=== PATIENT | male | born 1950 | race Caucasian/White ===

== ENCOUNTER 2017-01-14 08:55 | Day surgery (SDC) | payer BC ==
[2017-01-14] MEDS ORDERED: Lactated Ringers 1,000 ML IV SCH (09:00)
[2017-01-14] MEDS ORDERED: Sodium Chloride 0.9% 10 ML Syringe FLUSH PRN (09:00)
[2017-01-14] MEDS ORDERED: Propofol 200 MG/20 ML SDV ONE ×2 (10:59→11:51)
[2017-01-14] MEDS ORDERED: fentaNYL 100 MCG/2 ML SDV ONE ×2 (10:59→11:51)
[2017-01-14] MEDS ORDERED: Midazolam 1 MG/ML 2 ML SDV ONE ×2 (10:59→11:51)
--- NOTE | 2017-01-14 11:15 | PCM.PN ---
- General Info Date of Service: 01/14/17 - Review of Systems Systems Review Comment:: 66 y/o male with history of colon polyps here for follow up colonoscopy. His last colonoscopy was 3 years ago. He has not noticed any recent change in his bowel pattern. He is medically stable to proceed today. He agrees to proceed accepting risks. - Patient Data Vitals - most recent: Last Vital Signs Temp 97.9 F 01/14/17 09:15 Pulse 66 01/14/17 09:15 Resp 20 01/14/17 09:15 BP 124/82 01/14/17 09:15 Pulse Ox 100 01/14/17 09:15 Weight - most recent: 83.733 kg Med Orders - Current: Current Medications Lactated Ringer's (Ringers, Lactated) 1,000 mls @ 70 mls/hr IV ASDIRECTED KIRK Last Admin: 01/14/17 09:52 Dose: 70 mls/hr Sodium Chloride (Saline Flush) 10 ml FLUSH ASDIRECTED PRN PRN Reason: Keep Vein Open Discontinued Medications Fentanyl (Sublimaze) Confirm Administered Dose 100 mcg .ROUTE .STK-MED ONE Stop: 01/14/17 11:00 Midazolam HCl (Versed 1 Mg/Ml) Confirm Administered Dose 2 mg .ROUTE .STK-MED ONE Stop: 01/14/17 11:00 Propofol (Diprivan 20 Ml) Confirm Administered Dose 400 mg .ROUTE .STK-MED ONE Stop: 01/14/17 11:00 - Problem List Review Problem List Initiated/Reviewed/Updated: Yes - Assessment Assessment:: History of colon polyps - Plan Plan:: Colonoscopy
--- NOTE | 2017-01-14 11:59 | PCM.OPNOTE ---
- General Post-Op/Procedure Note Date of Surgery/Procedure: 01/14/17 Operative Procedure(s): Colonoscopy Findings: Mild sigmoid Diverticulosis no polyps seen Pre Op Diagnosis: History of colon polyps Post-Op Diagnosis: Diverticulosis Anesthesia Technique: MAC Primary Surgeon: Dany Pelletier Pathology: none Output, Urine Amount: 0 EBL in mLs: 0 Complications: None Condition: Good Free Text/Narrative:: Intake & Output 01/13/17 01/14/17 01/14/17 22:59 06:59 14:59 Intake Total 600 Balance 600
[2017-01-14 12:33] VITALS: BP 99/61
--- NOTE | 2017-01-14 16:34 | OR ---
Date of Procedure: 01/14/2017 PREOPERATIVE DIAGNOSIS: History of colon polyps. POSTOPERATIVE DIAGNOSIS: Diverticulosis. OPERATION PERFORMED: Colonoscopy. INDICATIONS FOR SURGERY: This 66-year-old male, has a history of colon polyps with his last colonoscopy being three years ago. He comes for surveillance exam. FINDINGS: No polyps are seen on today's exam. The patient does have a mild degree of sigmoid diverticulosis, but this does not appear acutely inflamed or otherwise complicated. The exam is otherwise unremarkable. PROCEDURE IN DETAIL: The patient was taken to the operating room. He was given intravenous sedation and with him in the left lateral decubitus position, digital rectal exam was performed, showing no rectal masses. The Olympus colonoscope was inserted into the rectum. Retroflexed examination of the rectal canal is performed. The scope was then carefully advanced under direct visualization through the entire length of the colon until the cecum was reached. Cecal acquisition is confirmed by identifying the normal internal cecal anatomy including the appendiceal orifice and ileocecal valve. The light was also noted to transilluminate the abdominal wall in the right lower quadrant. After examining the cecum, the scope was slowly withdrawn sequentially re-examining the colonic segments until the entire colon and rectum had been fully examined. The scope was then removed and the patient was taken from the operating room in satisfactory condition. ESTIMATED BLOOD LOSS: Zero. COMPLICATIONS: None. PROGNOSIS: Good. COMMENTS: I will advise that this patient have repeat colonoscopy in five years. RODRIGUEZ Pelletier MD /[id number]
== END 2017-01-14 12:55 | disposition home or self-care (01) ==
LOC: LL.SDS 08:55
PROVIDERS: ATTEND Surgery
DX: Z12.11 Encounter for screening for malignant neoplasm of colon (principal); I10 Essential (primary) hypertension; E78.5 Hyperlipidemia, unspecified; N40.0 Benign prostatic hyperplasia without lower urinary tract symptoms; Z79.899 Other long term (current) drug therapy
CPT/HCPCS: G0105; J7120; J2250; J2704; J3010

== ENCOUNTER 2019-02-26 17:28 | Observation (INO) | payer BC ==
[2019-02-26] MEDS ORDERED: Ondansetron 4 MG/2 ML SDV IVPUSH ONE (17:52)
[2019-02-26] MEDS ORDERED: Ondansetron 4 MG/2 ML SDV ONE (17:54)
[2019-02-26 18:21] LABS: CHLORIDE,CL 106 mmol/L (98-107); SODIUM,NA 141 mmol/L (136-145)
[2019-02-26] MEDS ORDERED: Sodium Chloride 0.9% 1,000 ML IV SCH (18:45)
[2019-02-26] MEDS ORDERED: HYDROmorphone 0.5 MG/0.5 ML Syringe IVPUSH ONE (18:54)
[2019-02-26] MEDS: Sodium Chloride 0.9% 10 ML Syringe FLUSH PRN ×2 (18:57→19:04)
--- NOTE | 2019-02-26 19:21 | EDM.PDOC ---
ED HPI GENERAL MEDICAL PROBLEM - General Chief Complaint: Trauma Stated Complaint: trauma Time Seen by Provider: 02/26/19 17:30 Source of Information: Reports: Patient, Family History Limitations: Reports: No Limitations - History of Present Illness INITIAL COMMENTS - FREE TEXT/NARRATIVE: Patient is a 68-year-old gentleman who states that he was given a goal writing on his new horse when the horse . Patient denies losing consciousness was alert and oriented 911 was called trauma code called on the field C-spine was placed IV heparin lock started patient was given fentanyl intranasal and Zofran IV patient arrived talkative complained of more minimal to moderate pain around 4 on arrival at this time we proceeded with trauma " Onset: Sudden Duration: Minutes:, Improving Location: Reports: Head, Neck, Chest, Back Quality: Reports: Ache, Throbbing Severity: Moderate Improves with: Reports: Rest Worsens with: Reports: Movement Context: Reports: Trauma Associated Symptoms: Reports: No Other Symptoms - Related Data Allergies Allergy/AdvReac Type Severity Reaction Status Date / Time No Known Allergies Allergy Verified 01/14/17 09:32 Home Meds: Home Meds Metoprolol Tartrate 25 mg PO DAILY 11/23/13 [History] Simvastatin [Zocor] 40 mg PO BEDTIME 11/23/13 [History] Past Medical History HEENT History: Reports: None Cardiovascular History: Reports: Arrhythmia Respiratory History: Reports: None Gastrointestinal History: Reports: None Other Gastrointestinal History: Tubular Adenoma Genitourinary History: Reports: BPH Musculoskeletal History: Reports: None Neurological History: Reports: None Psychiatric History: Reports: None Endocrine/Metabolic History: Reports: None Hematologic History: Reports: None Immunologic History: Reports: None Oncologic (Cancer) History: Reports: None Dermatologic History: Reports: Psoriasis - Past Surgical History HEENT Surgical History: Reports: None GI Surgical History: Reports: EGD Social & Family History - Caffeine Use Caffeine Use: Reports: Tea Review of Systems - Review of Systems Review Of Systems: See Below Constitutional: Reports: No Symptoms Eyes: Reports: No Symptoms Ears: Reports: No Symptoms Nose: Reports: No Symptoms Mouth/Throat: Reports: No Symptoms Respiratory: Reports: Shortness of Breath, Other (Mid back pain) Cardiovascular: Reports: No Symptoms GI/Abdominal: Reports: Nausea Genitourinary: Reports: No Symptoms Musculoskeletal: Reports: No Symptoms Skin: Reports: Other (Duration over forehead left above the eyebrow) Neurological: Reports: Headache, Weakness Psychiatric: Reports: No Symptoms ED EXAM, GENERAL - Physical Exam Exam: See Below Exam Limited By: No Limitations General Appearance: Alert, WD/WN, Anxious, Mild Distress Eye Exam: Bilateral Eye: EOMI, PERRL Ears: Normal External Exam, Normal Canal, Hearing Grossly Normal, Normal TMs Nose: Normal Inspection, Normal Mucosa, No Blood Throat/Mouth: Normal Inspection, Normal Lips, Normal Teeth, Normal Gums, Normal Oropharynx, Normal Voice, No Airway Compromise Head: Facial Tenderness, Other (Left head trauma) Neck: Normal Inspection, Supple, Non-Tender, Full Range of Motion Respiratory/Chest: No Respiratory Distress, Lungs Clear, Decreased Breath Sounds Cardiovascular: Normal Peripheral Pulses, Regular Rate, Rhythm, No Edema, No Gallop, No JVD, No Murmur, No Rub Course - Orders/Labs/Meds Orders: Active Orders 24 hr Category Date Time Status Cervical Spine 2V or 3V [CR] Stat Exams 02/26/19 18:33 Taken Chest 1V Frontal [CR] Stat Exams 02/26/19 18:32 Taken Pelvis 1V or 2V [CR] Stat Exams 02/26/19 18:32 Taken Sacrum Coccyx Min 2V [CR] Stat Exams 02/26/19 18:34 Taken Thoracic Spine 3V [CR] Routine Exams 02/26/19 18:33 Taken UA W/MICROSCOPIC [URIN] Routine Lab 02/26/19 17:57 Ordered Sodium Chloride 0.9% [Normal Saline] 1,000 ml Med 02/26/19 18:45 Active IV ASDIRECTED Sodium Chloride 0.9% [Saline Flush] Med 02/26/19 18:56 Active 10 ml FLUSH ASDIRECTED PRN Medication Orders Sodium Chloride (Normal Saline) 1,000 mls @ 75 mls/hr IV ASDIRECTED KIRK Last Admin: 02/26/19 18:56 Dose: 75 mls/hr Sodium Chloride (Saline Flush) 10 ml FLUSH ASDIRECTED PRN PRN Reason: keep vein open Last Admin: 02/26/19 19:04 Dose: 10 ml Admin: 02/26/19 18:57 Dose: 10 ml Labs: Laboratory Tests 02/26/19 02/26/19 02/26/19 Range/Units 17:54 17:54 17:54 WBC 12.8 H (4.0-10.2) K/uL RBC 4.70 (4.33-5.41) M/uL Hgb 14.6 (13.1-16.8) g/dL Hct 40.7 (39.0-49.0) % MCV 86.6 (84.0-98.0) fL MCH 31.1 (28.2-33.3) pg MCHC 35.9 (31.7-36.0) g/dL RDW 13.2 (11.2-14.1) % Plt Count 213 (150-350) K/uL Neut % (Auto) 85.9 H (45.0-80.0) % Lymph % (Auto) 7.4 L (10.0-50.0) % [place] % (Auto) 6.1 (2.0-14.0) % Eos % (Auto) 0.5 (0.0-5.0) % Baso % (Auto) 0.1 (0.0-2.0) % Neut # (Auto) 10.95 H (1.40-7.00) K/uL Lymph # (Auto) 0.95 (0.50-3.50) K/uL [place] # (Auto) 0.78 (0.00-1.00) K/uL Eos # (Auto) 0.07 (0.00-0.50) K/uL Baso # (Auto) 0.01 (0.00-0.20) K/uL PT 11.2 (9.5-12.0) SEC INR 1.0 APTT 21.7 (21.0-31.3) SEC Sodium 141 (136-145) mmol/L Potassium 3.8 (3.5-5.1) mmol/L Chloride 106 (98-107) mmol/L Carbon Dioxide 23.1 (21.0-32.0) mmol/L BUN 22 H (7-18) mg/dL Creatinine 0.91 (0.51-1.17) mg/dL Est Cr Clr Drug Dosing TNP Estimated GFR (MDRD) > 60 mL/min Glucose 130 H (74-106) mg/dL Lactic Acid (0.4-2.0) mmol/L Calcium 8.6 (8.5-10.1) mg/dL Total Bilirubin 0.7 (0.2-1.0) mg/dL AST 31 (15-37) U/L ALT 38 (12-78) U/L Alkaline Phosphatase 68 (46-116) IU/L Creatine Kinase 303 (26-308) U/L Total Protein 6.7 (6.4-8.2) g/dL Albumin 3.7 (3.4-5.0) g/dL Amylase 45 (25-115) U/L Lipase 140 (73-393) U/L 02/26/19 Range/Units 17:54 WBC (4.0-10.2) K/uL RBC (4.33-5.41) M/uL Hgb (13.1-16.8) g/dL Hct (39.0-49.0) % MCV (84.0-98.0) fL MCH (28.2-33.3) pg MCHC (31.7-36.0) g/dL RDW (11.2-14.1) % Plt Count (150-350) K/uL Neut % (Auto) (45.0-80.0) % Lymph % (Auto) (10.0-50.0) % [place] % (Auto) (2.0-14.0) % Eos % (Auto) (0.0-5.0) % Baso % (Auto) (0.0-2.0) % Neut # (Auto) (1.40-7.00) K/uL Lymph # (Auto) (0.50-3.50) K/uL [place] # (Auto) (0.00-1.00) K/uL Eos # (Auto) (0.00-0.50) K/uL Baso # (Auto) (0.00-0.20) K/uL PT (9.5-12.0) SEC INR APTT (21.0-31.3) SEC Sodium (136-145) mmol/L Potassium (3.5-5.1) mmol/L Chloride (98-107) mmol/L Carbon Dioxide (21.0-32.0) mmol/L BUN (7-18) mg/dL Creatinine (0.51-1.17) mg/dL Est Cr Clr Drug Dosing Estimated GFR (MDRD) mL/min Glucose (74-106) mg/dL Lactic Acid 2.4 H (0.4-2.0) mmol/L Calcium (8.5-10.1) mg/dL Total Bilirubin (0.2-1.0) mg/dL AST (15-37) U/L ALT (12-78) U/L Alkaline Phosphatase (46-116) IU/L Creatine Kinase (26-308) U/L Total Protein (6.4-8.2) g/dL Albumin (3.4-5.0) g/dL Amylase (25-115) U/L Lipase (73-393) U/L Meds: Medications Generic Name Dose Route Start Last Admin Trade Name Freq PRN Reason Stop Dose Admin Sodium Chloride 1,000 mls @ 75 mls/hr 02/26/19 18:45 02/26/19 18:56 Normal Saline IV 75 mls/hr ASDIRECTED KIRK Administration Sodium Chloride 10 ml 02/26/19 18:56 02/26/19 19:04 Saline Flush FLUSH 10 ml ASDIRECTED PRN Administration keep vein open Discontinued Medications Generic Name Dose Route Start Last Admin Trade Name Freq PRN Reason Stop Dose Admin Hydromorphone HCl 0.5 mg 02/26/19 18:54 02/26/19 19:03 Dilaudid IVPUSH 02/26/19 18:55 0.5 mg ONETIME ONE Administration Ondansetron HCl 4 mg 02/26/19 17:52 02/26/19 17:58 Zofran IVPUSH 02/26/19 17:53 4 mg ONETIME ONE Administration Ondansetron HCl Confirm 02/26/19 17:54 02/26/19 18:08 Zofran Administered 02/26/19 17:55 Not Given Dose 4 mg .ROUTE .STK-MED ONE Departure - Departure Time of Disposition: 19:26 Disposition: Refer to Observation Condition: Fair Clinical Impression: Back pain due to injury, Contusion of buttock, Contusion of back, Muscle strain of left upper back - Discharge Information *PRESCRIPTION DRUG MONITORING PROGRAM REVIEWED*: Not Applicable *COPY OF PRESCRIPTION DRUG MONITORING REPORT IN PATIENT MIKEL: Not Applicable Care Plan Goals: Recent will be admitted for observation secondary to trauma with pain control. - My Orders Last 24 Hours: My Active Orders 02/26/19 17:57 UA W/MICROSCOPIC [URIN] Routine 02/26/19 18:32 Chest 1V Frontal [CR] Stat Pelvis 1V or 2V [CR] Stat 02/26/19 18:33 Cervical Spine 2V or 3V [CR] Stat Thoracic Spine 3V [CR] Routine 02/26/19 18:34 Sacrum Coccyx Min 2V [CR] Stat 02/26/19 18:45 Sodium Chloride 0.9% [Normal Saline] 1,000 ml IV ASDIRECTED 02/26/19 18:56 Sodium Chloride 0.9% [Saline Flush] 10 ml FLUSH ASDIRECTED PRN - Assessment/Plan Last 24 Hours: My Active Orders 02/26/19 17:57 UA W/MICROSCOPIC [URIN] Routine 02/26/19 18:32 Chest 1V Frontal [CR] Stat Pelvis 1V or 2V [CR] Stat 02/26/19 18:33 Cervical Spine 2V or 3V [CR] Stat Thoracic Spine 3V [CR] Routine 02/26/19 18:34 Sacrum Coccyx Min 2V [CR] Stat 02/26/19 18:45 Sodium Chloride 0.9% [Normal Saline] 1,000 ml IV ASDIRECTED 02/26/19 18:56 Sodium Chloride 0.9% [Saline Flush] 10 ml FLUSH ASDIRECTED PRN
[2019-02-26] MEDS ORDERED: Acetaminophen 325 MG Tab PO PRN (21:04)
[2019-02-26] MEDS ORDERED: Sennosides 8.6 MG Tab PO PRN (21:04)
[2019-02-26] MEDS ORDERED: HYDROmorphone 1 MG/ML Syringe IVPUSH PRN (21:04)
[2019-02-26 22:13] VITALS: BP 96/73
--- NOTE | 2019-02-26 22:16 | PCM.DCSUM1 ---
Discharge Summary - Hospital Course Free Text/Narrative:: Patient is a 68-year-old who was seen in the ER status post trauma code patient was at home was ready to get on his course when he will attempted to mom the horse and was bucked off a horse once the patient was in the floor his granddaughter who is a physical therapist?occupational therapist kept him laying down and call 911 patient was backboarded and brought into the ER complaining mainly of mid thoracic pain and sacral pain at this time neck x- rays were obtained which appeared within normal limits thoracic spine was seen and there was some shadowing at T 10 T11 area that was suspicious for some type of fracture and there was a translucency of the distal sacrum that could be interpreted as sacral fracture at this time we proceeded to get a thoracic CT which revealed a nondisplaced fracture involving the posterior elements of T10 which extends to both inferior articulating surfaces bilateral lamina and base of the spinous process there are subtle irregularities noticed in the anterior inferior aspect of T11 which could represent an acute fracture at site at this time I discussed with neurosurgeon and that neurosurgeon would like us to send him on backboard up to [place] for further evaluation and treatment Diagnosis: Stroke: No - Discharge Data Discharge Date: 02/26/19 Discharge Disposition: DC/Tfer to Acute Hospital 02 Condition: Stable - Discharge Diagnosis/Problem(s) (1) Fracture of thoracic spine SNOMED Code(s): 425580503 ICD Code: S22.009A - UNSP FRACTURE OF UNSP THORACIC VERTEBRA, INIT FOR CLOS FX Status: Acute Priority: High Current Visit: Yes Qualifiers: Thoracic vertebra fracture level: T11 Fracture type: closed Fracture morphology: other fracture (2) Back pain due to injury SNOMED Code(s): 815318200, [id number] ICD Code: S39.92XA - UNSPECIFIED INJURY OF LOWER BACK, INITIAL ENCOUNTER Status: Acute Priority: High Current Visit: No - Patient Summary/Data Consults: Consultations 02/26/19 21:04 OT Evaluation and Treatment [CONS] Routine PT Evaluation and Treatment [CONS] Routine - Patient Instructions Diet: NPO Driving: Do Not Drive Showering/Bathing: No Showering Notify Provider of: Nausea and/or Vomiting - Discharge Plan *PRESCRIPTION DRUG MONITORING PROGRAM REVIEWED*: Not Applicable *COPY OF PRESCRIPTION DRUG MONITORING REPORT IN PATIENT MIKEL: No Home Medications: Home Meds Metoprolol Tartrate 25 mg PO DAILY 11/23/13 [History] Simvastatin [Zocor] 40 mg PO BEDTIME 11/23/13 [History] Forms: ED Department Discharge - Discharge Summary/Plan Comment DC Time >30 min.: Yes Discharge Summary/Plan Comment: Patient will be transferred by ambulance to [place] may use Dilaudid 0.5 every hour for pain control call if medication is not holding the pain down - General Info Date of Service: 02/26/19 Functional Status: Reports: Other (Nothing by mouth) - Review of Systems General: Reports: Other (Sacral and low back pain) HEENT: Reports: No Symptoms Pulmonary: Reports: No Symptoms Cardiovascular: Reports: No Symptoms Gastrointestinal: Reports: No Symptoms Genitourinary: Reports: No Symptoms Musculoskeletal: Reports: No Symptoms, Back Pain Skin: Reports: Bruising (Left forehead buttocks) Neurological: Reports: No Symptoms Psychiatric: Reports: No Symptoms - Patient Data Weight - Most Recent: 200 lb 11.2 oz Lab Results - Last 24 hrs: Laboratory Results - last 24 hr 02/26/19 02/26/19 02/26/19 Range/Units 17:54 17:54 17:54 WBC 12.8 H (4.0-10.2) K/uL RBC 4.70 (4.33-5.41) M/uL Hgb 14.6 (13.1-16.8) g/dL Hct 40.7 (39.0-49.0) % MCV 86.6 (84.0-98.0) fL MCH 31.1 (28.2-33.3) pg MCHC 35.9 (31.7-36.0) g/dL RDW 13.2 (11.2-14.1) % Plt Count 213 (150-350) K/uL Neut % (Auto) 85.9 H (45.0-80.0) % Lymph % (Auto) 7.4 L (10.0-50.0) % [place] % (Auto) 6.1 (2.0-14.0) % Eos % (Auto) 0.5 (0.0-5.0) % Baso % (Auto) 0.1 (0.0-2.0) % Neut # (Auto) 10.95 H (1.40-7.00) K/uL Lymph # (Auto) 0.95 (0.50-3.50) K/uL [place] # (Auto) 0.78 (0.00-1.00) K/uL Eos # (Auto) 0.07 (0.00-0.50) K/uL Baso # (Auto) 0.01 (0.00-0.20) K/uL PT 11.2 (9.5-12.0) SEC INR 1.0 APTT 21.7 (21.0-31.3) SEC Sodium 141 (136-145) mmol/L Potassium 3.8 (3.5-5.1) mmol/L Chloride 106 (98-107) mmol/L Carbon Dioxide 23.1 (21.0-32.0) mmol/L BUN 22 H (7-18) mg/dL Creatinine 0.91 (0.51-1.17) mg/dL Est Cr Clr Drug Dosing TNP Estimated GFR (MDRD) > 60 mL/min Glucose 130 H (74-106) mg/dL Lactic Acid (0.4-2.0) mmol/L Calcium 8.6 (8.5-10.1) mg/dL Total Bilirubin 0.7 (0.2-1.0) mg/dL AST 31 (15-37) U/L ALT 38 (12-78) U/L Alkaline Phosphatase 68 (46-116) IU/L Creatine Kinase 303 (26-308) U/L Total Protein 6.7 (6.4-8.2) g/dL Albumin 3.7 (3.4-5.0) g/dL Amylase 45 (25-115) U/L Lipase 140 (73-393) U/L 02/26/19 Range/Units 17:54 WBC (4.0-10.2) K/uL RBC (4.33-5.41) M/uL Hgb (13.1-16.8) g/dL Hct (39.0-49.0) % MCV (84.0-98.0) fL MCH (28.2-33.3) pg MCHC (31.7-36.0) g/dL RDW (11.2-14.1) % Plt Count (150-350) K/uL Neut % (Auto) (45.0-80.0) % Lymph % (Auto) (10.0-50.0) % [place] % (Auto) (2.0-14.0) % Eos % (Auto) (0.0-5.0) % Baso % (Auto) (0.0-2.0) % Neut # (Auto) (1.40-7.00) K/uL Lymph # (Auto) (0.50-3.50) K/uL [place] # (Auto) (0.00-1.00) K/uL Eos # (Auto) (0.00-0.50) K/uL Baso # (Auto) (0.00-0.20) K/uL PT (9.5-12.0) SEC INR APTT (21.0-31.3) SEC Sodium (136-145) mmol/L Potassium (3.5-5.1) mmol/L Chloride (98-107) mmol/L Carbon Dioxide (21.0-32.0) mmol/L BUN (7-18) mg/dL Creatinine (0.51-1.17) mg/dL Est Cr Clr Drug Dosing Estimated GFR (MDRD) mL/min Glucose (74-106) mg/dL Lactic Acid 2.4 H (0.4-2.0) mmol/L Calcium (8.5-10.1) mg/dL Total Bilirubin (0.2-1.0) mg/dL AST (15-37) U/L ALT (12-78) U/L Alkaline Phosphatase (46-116) IU/L Creatine Kinase (26-308) U/L Total Protein (6.4-8.2) g/dL Albumin (3.4-5.0) g/dL Amylase (25-115) U/L Lipase (73-393) U/L Med Orders - Current: Current Medications Acetaminophen (Tylenol) 650 mg PO Q4H PRN PRN Reason: Pain (Mild 1-3)/fever Enoxaparin Sodium (Lovenox) 30 mg SUBCUT DAILY [facility] Hydromorphone HCl (Dilaudid) 0.5 mg IVPUSH Q2H PRN PRN Reason: Pain (severe 7-10) Sodium Chloride (Normal Saline) 1,000 mls @ 75 mls/hr IV ASDIRECTED KIRK Last Admin: 02/26/19 18:56 Dose: 75 mls/hr Senna (Senna) 1 mg PO BID PRN PRN Reason: Constipation Sodium Chloride (Saline Flush) 10 ml FLUSH ASDIRECTED PRN PRN Reason: keep vein open Last Admin: 02/26/19 19:04 Dose: 10 ml Discontinued Medications Hydromorphone HCl (Dilaudid) 0.5 mg IVPUSH ONETIME ONE Stop: 02/26/19 18:55 Last Admin: 02/26/19 19:03 Dose: 0.5 mg Ondansetron HCl (Zofran) 4 mg IVPUSH ONETIME ONE Stop: 02/26/19 17:53 Last Admin: 02/26/19 17:58 Dose: 4 mg Ondansetron HCl (Zofran) Confirm Administered Dose 4 mg .ROUTE .STK-MED ONE Stop: 02/26/19 17:55 Last Admin: 02/26/19 18:08 Dose: Not Given - Exam General: Reports: Alert, Oriented, Cooperative HEENT: Reports: Pupils Equal Neck: Reports: Supple Lungs: Reports: Clear to Auscultation, Normal Respiratory Effort Cardiovascular: Reports: Regular Rate, Regular Rhythm GI/Abdominal Exam: Normal Bowel Sounds, Soft, Non-Tender, No Organomegaly, No Distention, No Abnormal Bruit, No Mass, Pelvis Stable (Male) Exam: Deferred Rectal (Males) Exam: Deferred Back Exam: Reports: Normal Inspection, Decreased Range of Motion, Muscle Spasm, Paraspinal Tenderness, Vertebral Tenderness Extremities: Normal Inspection, Normal Range of Motion, Non-Tender, No Pedal Edema, Normal Capillary Refill
[2019-02-27] MEDS ORDERED: Enoxaparin 30 MG/0.3 ML Syringe SUBCUT SCH (08:00)
== END 2019-02-26 22:50 ==
LOC: LL.ED 17:28 → LL.MS 20:30 → UNDOADMOB 20:30 → UNDODISOB 22:50
PROVIDERS: ADMIT Family Medicine; ATTEND Family Medicine
DX: S22.071A Stable burst fracture of T9-T10 vertebra, initial encounter for closed fracture (principal); S22.081A Stable burst fracture of T11-T12 vertebra, initial encounter for closed fracture; V80.010A Animal-rider injured by fall from or being thrown from horse in noncollision accident, initial encounter; Z79.899 Other long term (current) drug therapy
CPT/HCPCS: 36415; 71045; 72040; 72072; 72128; 72170; 72220; 80053; 81001; 82150; 82550; 83605; 83690; 85025; 85610; 85730; 96361; 96374; 96375; 99285-25; G0378; J1170; J2405; J7030

== ENCOUNTER 2022-02-11 14:51 | Emergency (ER) | payer OTHER, BC, MEDICARE ==
[2022-02-11] MEDS: Lidocaine 1% 5 ML VIAL INJECT ONE (15:21)
[2022-02-11] MEDS: Bacitracin/Neomycin/Polymyxin B Oint 0.9 GM U/D Packet TOP ONE (15:25)
[2022-02-11] MEDS: Diphtheria,Pertussis(Acell),Tetanus Vaccine 0.5 ML Syringe IM ONE (15:51)
[2022-02-11 18:02] VITALS: BP 142/68; PULSE 68
== END 2022-02-11 16:20 | disposition home or self-care (01) ==
LOC: LL.ED 14:51
DX: S61.012A Laceration without foreign body of left thumb without damage to nail, initial encounter (principal); Z23 Encounter for immunization; Z79.899 Other long term (current) drug therapy; W26.0XXA Contact with knife, initial encounter; Y99.0 Civilian activity done for income or pay
CPT/HCPCS: 12001; 90471; 90715; 99282-25

== ENCOUNTER 2022-04-16 08:42 | Day surgery (SDC) | payer BC, MEDICARE ==
[~2022-04-16 08:42] MED LIST: Midazolam 1 MG/ML 2 ML SDV ONE; Propofol 200 MG/20 ML SDV ONE; Sodium Chloride 0.9% 10 ML Syringe FLUSH PRN
[2022-04-16] MEDS: Lactated Ringers 1,000 ML IV SCH (09:23)
[2022-04-16] MEDS ORDERED: Propofol 200 MG/20 ML SDV ONE (11:06)
[2022-04-16 15:16] VITALS: BP 123/77; PULSE 50
== END 2022-04-16 12:00 | disposition home or self-care (01) ==
LOC: LL.SDS 08:42
PROVIDERS: ATTEND Surgery
DX: Z12.11 Encounter for screening for malignant neoplasm of colon (principal); D12.0 Benign neoplasm of cecum; K57.30 Diverticulosis of large intestine without perforation or abscess without bleeding; K64.8 Other hemorrhoids; E78.2 Mixed hyperlipidemia; N40.0 Benign prostatic hyperplasia without lower urinary tract symptoms; J30.1 Allergic rhinitis due to pollen; H61.23 Impacted cerumen, bilateral; Z80.0 Family history of malignant neoplasm of digestive organs; Z90.49 Acquired absence of other specified parts of digestive tract; Z98.890 Other specified postprocedural states; Z79.899 Other long term (current) drug therapy
CPT/HCPCS: J2704; J7120

== ENCOUNTER 2025-05-24 09:59 | Day surgery (SDC) | payer BC, MEDICARE ==
[2025-05-24] MEDS: Lactated Ringers 1,000 ML IV SCH (10:28)
[2025-05-24 12:39] VITALS: BP 124/77; PULSE 50
== END 2025-05-24 12:18 | disposition home or self-care (01) ==
LOC: LL.SDS 09:59
PROVIDERS: ATTEND Surgery
DX: Z12.11 Encounter for screening for malignant neoplasm of colon (principal); D12.5 Benign neoplasm of sigmoid colon; D12.0 Benign neoplasm of cecum; K57.30 Diverticulosis of large intestine without perforation or abscess without bleeding; K64.9 Unspecified hemorrhoids; I10 Essential (primary) hypertension; E78.2 Mixed hyperlipidemia; Z86.0100 Personal history of colon polyps, unspecified
CPT/HCPCS: 00811; 88305; 99100; J2250; J2704; J7120